=== PATIENT | male | born 1940 ===

== ENCOUNTER 2021-12-05 03:48 | Emergency (ER) | payer MEDICARE ==
[2021-12-05] MEDS ORDERED: levETIRAcetam 1000 MG/NS 0.75% 1,000 MG/100 ML BAG IV ONE (05:26)
[2021-12-05] MEDS ORDERED: hydrALAZINE 20 MG/1 ML INJ IV ONE (06:36)
--- NOTE | 2021-12-05 06:36 | Emergency Department Report ---
ED Seizure HPI - General Chief Complaint: Seizure Stated Complaint: SEIZURE Time Seen by Provider: 12/05/21 06:27 Source: patient Mode of arrival: Stretcher Limitations: No Limitations - History of Present Illness Initial Comments: Patient is a 81-year-old male brought in by EMS for witnessed seizure that occurred at approximately 3 AM this morning. He has known history of seizures and takes Keppra. He is visiting family from out of town. - Related Data Allergies Allergy/AdvReac Type Severity Reaction Status Date / Time No Known Allergies Allergy Verified 12/05/21 07:15 ED Review of Systems ROS: Stated complaint: SEIZURE Other details as noted in HPI Comment: Unobtainable due to pts medical conditions ED Past Medical Hx - Past Medical History Previous Medical History?: Yes Hx Hypertension: Yes Hx Seizures: Yes - Surgical History Past Surgical History?: No - Social History Smoking Status: Unknown if ever smoked ED Physical Exam - General Limitations: No Limitations General appearance: postictal - Head Head exam: Present: atraumatic, normocephalic - Respiratory Respiratory exam: Present: normal lung sounds bilaterally. Absent: respiratory distress - Cardiovascular Cardiovascular Exam: Present: regular rate, normal rhythm, normal heart sounds - GI/Abdominal GI/Abdominal exam: Present: soft. Absent: distended - Rectal Rectal exam: Present: deferred - Neurological Exam Neurological exam: Present: altered (Postictal) - Skin Skin exam: Present: warm, dry, intact, normal color ED Course Vital Signs 12/05/21 12/05/21 12/05/21 03:49 05:10 05:58 Temperature 98 F Pulse Rate 110 H 101 H Respiratory 18 18 Rate Blood Pressure 169/97 Blood Pressure 212/125 [Left] O2 Sat by Pulse 97 99 97 Oximetry 12/05/21 12/05/21 12/05/21 06:45 06:46 07:15 Temperature Pulse Rate 96 H 98 H 104 H Respiratory 15 Rate Blood Pressure 180/102 Blood Pressure 181/102 170/94 [Left] O2 Sat by Pulse 95 96 Oximetry 12/05/21 12/05/21 12/05/21 08:00 09:00 10:00 Temperature Pulse Rate 103 H 110 H 105 H Respiratory 19 21 16 Rate Blood Pressure 176/96 144/80 140/83 Blood Pressure [Left] O2 Sat by Pulse 97 96 96 Oximetry ED Medical Decision Making - Lab Data Result diagrams: 12/05/21 06:18 12/05/21 06:18 - Medical Decision Making Labs grossly unremarkable except for serum glucose of 304. Patient has known diabetes. He was loaded with IV Keppra. On reassessment he is arousable to voice and able to respond appropriately to questioning. He is stable for discharge home with daughter. Critical care attestation.: If time is entered above; I have spent that time in minutes in the direct care of this critically ill patient, excluding procedure time. ED Disposition Clinical Impression: Seizure Disposition: 01 HOME / SELF CARE / HOMELESS Is pt being admited?: No Does the pt Need Aspirin: No Condition: Stable Instructions: Seizure, Adult, [id number] Additional Instructions: Please follow-up with your regular doctor as needed. You may return if your symptoms worsen. Time of Disposition: 11:00
[2021-12-05 07:02] LABS: Basophils % (Auto) 0.3 % (0.0-1.8); Eosinophils % (Auto) 0.1 % (0.0-4.3); Hematocrit 45.4 % (35.5-45.6); Hemoglobin 15.4 gm/dl (11.8-15.2); Lymphocytes # (Auto) 0.5 K/mm3 (1.2-5.4); Lymphocytes % (Auto) 9.2 % (13.4-35.0); Mean Corpuscular HGB Conc 34 % (32-34); Mean Corpuscular Volume 97 fl (84-94); Monocytes # (Auto) 0.2 K/mm3 (0.0-0.8); Platelet Count 210 K/mm3 (140-440); Red Cell Distribution Width 12.9 % (13.2-15.2)
[2021-12-05 07:22] LABS: BUN/Creatinine Ratio 17; Blood Urea Nitrogen 15 mg/dL (9-20); Calcium 9.4 mg/dL (8.4-10.2); Hemolysis Index 4
[2021-12-05 11:38] VITALS: BP 153/97
== END 2021-12-05 11:38 | disposition home or self-care (01) ==
LOC: ED 03:48
DX: R56.9 Unspecified convulsions (principal); I10 Essential (primary) hypertension; Z79.899 Other long term (current) drug therapy
CPT/HCPCS: 36415; 80048; 83735; 85025; 96365; 96375; 99284; J0360; J1953